=== PATIENT | female | born 2000 | race Caucasian/White ===

== ENCOUNTER 2021-02-09 23:26 | Emergency (ER) | payer SELFPAY ==
[~2021-02-09] VITALS: Ht 162.5 cm; Wt 68.2 kg
[2021-02-10] MEDS ORDERED: IBUPROFEN 800 MG (MOTRIN) TAB PO ONE ×2 (00:33→00:45)
[2021-02-10] MEDS ORDERED: ACETAMINOPHEN 500 MG TAB (TYLENOL) ONE (00:33)
[2021-02-10] MEDS ORDERED: ACETAMINOPHEN 500 MG TAB (TYLENOL) PO ONE (00:45)
[2021-02-10] MEDS ORDERED: RX-AMOXICILLIN 500 MG CAP #3 PPK PO STA (00:49)
[2021-02-10] MEDS ORDERED: PRD20T PO (00:53)
[2021-02-10] MEDS ORDERED: AMOX875T2 PO (00:53)
--- NOTE | 2021-02-10 00:53 | ED Cough/URI ---
General Chief Complaint: Cough/Cold/Flu Symptoms Stated Complaint: COUGH / FEVER / SORE THROAT / CONGESTION Source: patient History of Present Illness Date Seen by Provider: Feb 10, 2021 Time Seen by Provider: 23:55 Initial Comments PT ARRIVES VIA POV FROM HOME STATES SHE HAS HAD A VERY BAD SORE THROAT SINCE Wednesday02/03/21, AND IS GETTING WORSE FEELS LIKE HER THROAT IS SWOLLEN AND IT HURTS TO SWALLOW, BUT NO PROBLEMS HANDLING SECRETIONS HAS FELT "FEVERISH" FOR A COUPLE OF WEEKS ,BUT NO ACTUAL FEVER UNTIL YESTERDAY--TEMP IS 101.3 ON ARRIVAL HERE PT HAD ONE ALEVE AT 2300 TONIGHT C/O MILD NASAL CONGESTION C/O MILD COUGH HAS BODY ACHES WITH FEVER NO LOSS OF TASTE OR SMELL NO GI SYMPTOMS NO HEADACHE 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 IS PSU STUDENT FROM [place], [place] Allergies and Home Medications Allergies Coded Allergies: No Known Drug Allergies (Unverified , 02/10/21) Home Medications Amoxicillin 875 Mg Tablet, 875 MG PO BID Prescribed by: SUNIL WEST on 02/10/2152 Prednisone 20 Mg Tab, 40 MG PO DAILY Prescribed by: SUNIL WEST on 02/10/2152 Patient Home Medication List Home Medication List Reviewed: Yes Review of Systems Review of Systems Constitutional: see HPI, fever, malaise EENTM: see HPI, nose congestion, throat pain, throat swelling; No ear pain, No hoarseness, No mouth swelling Respiratory: see HPI, cough; No short of breath Cardiovascular: no symptoms reported Gastrointestinal: no symptoms reported; No abdominal pain, No diarrhea, No nausea, No vomiting Genitourinary: no symptoms reported Musculoskeletal: see HPI Skin: no symptoms reported; No rash Psychiatric/Neurological: No Symptoms Reported Hematologic/Lymphatic: No Symptoms Reported Immunological/Allergic: no symptoms reported Past Ruknwzu-Udbabd-Rfekki Hx Past Med/Social Hx: Reviewed and Corrections made Physical Exam Capillary Refill : Height: '" Weight: lbs. oz. kg; BMI Method: General Appearance: WD/WN, no apparent distress, other (DOES NOT APPEAR ACUTELY ILL. ) HEENT: PERRL/EOMI, TMs normal; No photophobia; pharyngeal erythema (MILD ERYTHEMA, BUT TONSILS +3/4 IN SIZE. NO EXUDATES. 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, no motor/sensory deficits, alert, normal mood/affect, oriented x 3 Skin: normal color, warm/dry; No rash; tattoos/piercings Progress/Results/Core Measures Suspected Sepsis SIRS Temperature: Pulse: Respiratory Rate: Blood Pressure / Mean: Results/Orders Lab Results Laboratory Tests Test 02/10/21 00:04 Range/Units Coronavirus 2019 (VISHAL) Negative Negative Group A Streptococcus Screen NEGATIVE NEGATIVE Micro Results Microbiology 02/10/21 Influenza Types A,B Antigen (HARJIT) - Final, Complete My Orders Orders - SUNIL WEST DO Rapid Strep A Screen (02/09/21 23:51) Influenza A And B Antigens (02/09/21 23:51) Covid 19 Inhouse Test (02/09/21 23:51) Ibuprofen Tablet (Motrin Tablet) (02/10/21 00:33) Acetaminophen Tablet (Tylenol Tablet) (02/10/21 00:33) Acetaminophen Tablet (Tylenol Tablet) (02/10/21 00:45) Ibuprofen Tablet (Motrin Tablet) (02/10/21 00:45) Rx-Amoxicillin Capsule (Rx-Polymox Capsu (02/10/21 00:49) Medications Given in ED Current Medications Medications Dose Ordered Sig/Sonal Route Start Time Stop Time Status Last Admin Dose Admin Acetaminophen 1,000 mg ONCE ONCE PO 02/10/21 00:45 02/10/21 00:46 DC 02/10/21 00:51 1,000 MG Ibuprofen 800 mg ONCE ONCE PO 02/10/21 00:45 02/10/21 00:46 DC 02/10/21 00:50 800 MG Vital Signs/I&O Capillary Refill : Progress Note : Progress Note PLACED IN ISOLATION ROOM PPE WORN AT ALL TIMES COVID-19 TESTING PERFORMED PT ADVISED OF NEED FOR QUARANTINE STRONGLY ENCOURAGED PT TO HAVE MONO TESTING, AND SHE DECLINES. ADVISED PT THAT IF HER SYMPTOMS PERSIST, SHE MAY NEED TO BE RE-TESTED FOR COVID, AND MAY NEED TESTED FOR MONO. Departure Impression Primary Impression: Upper respiratory infection Additional Impressions: Pharyngitis Person under investigation for COVID-19 Disposition: 01 HOME, SELF-CARE Condition: Stable Departure-Patient Inst. Referrals: NO,LOCAL PHYSICIAN (PCP/Family) Primary Care Physician Patient Instructions: Sore Throat, Adult (DC), Preventing the Spread of an Infectious Disease, Coronavirus Disease 2019 (COVID-19) Overview Add. Discharge Instructions: LOTS OF CLEAR LIQUIDS FREQUENT SALT WATER GARGLES TYLENOL 1 GRAM/ MOTRIN 800 MG 4 TIMES A DAY FOR PAIN OR FEVER FOLLOW UP WITH [facility] CLINIC IN 2-3 DAYS IF NO BETTER, RETURN TO ER IF WORSE YOU MAY NEED TO BE RE-TESTED FOR COVID-19 IN A FEW DAYS IF YOU ARE STILL HAVING SYMPTOMS. YOU MAY ALSO NEED TO BE TESTED FOR MONO. QUARANTINE YOURSELF AND ALL HOUSEHOLD AND CLOSE CONTACTS FOR 2 WEEKS OR UNTIL CLEARED BY OR HEALTH DEPT. All discharge instructions reviewed with patient and/or family. Voiced understanding. Scripts Prednisone (Prednisone) 20 Mg Tab 40 MG PO DAILY, #6 TAB 0 Refills Prov: SUNIL WEST DO 02/10/21 Amoxicillin (Amoxicillin) 875 Mg Tablet 875 MG PO BID, #20 TAB Prov: SUNIL WEST DO 02/10/21 Work/School Note: School/Childcare Release, Date Seen in the Emergency Department: Feb 09, 2021 Return to School: Feb 24, 2021 Work Release Form SUNIL WEST DO Feb 10, 2021 00:53
[2021-02-10 01:05] VITALS: BP 108/81
== END 2021-02-10 01:05 | disposition home or self-care (01) ==
LOC: ER 23:30
DX: J02.9 Acute pharyngitis, unspecified (principal); J06.9 Acute upper respiratory infection, unspecified; Z20.822 Contact with and (suspected) exposure to COVID-19; Z79.52 Long term (current) use of systemic steroids
CPT/HCPCS: 87430; 87804; 99282; U0002; 87635